=== PATIENT | male | born 1960 | race African-American/Black ===

== ENCOUNTER 2021-12-18 05:14 | Day surgery (SDC) | payer MEDICARE ==
[~2021-12-18] VITALS: Ht 170.2 cm; Wt 77.3 kg
[2021-12-18] VITALS (8 sets, daily range): BP systolic 121–143; BP diastolic 66–80; PULSE 52–81; TEMP 97–97.2
[2021-12-18] MEDS ORDERED: GLUCOPHAGE1000 MG PO (05:59)
[2021-12-18] MEDS ORDERED: PRILOSEC 20MG20 MG PO (05:59)
[2021-12-18] MEDS ORDERED: PRAVACHOL 40MG40 MG PO (06:00)
[2021-12-18] MEDS ORDERED: GLUCOTROL XL5 MG/TAB PO (06:00)
[2021-12-18] MEDS ORDERED: ZOVIRAX 200MG200 MG PO (06:01)
[2021-12-18] MEDS ORDERED: LANTUS SOLOS100 U/ML SQ (06:02)
[2021-12-18] MEDS ORDERED: NORCO 325 MG-101 TAB PO (06:02)
--- NOTE | 2021-12-18 08:55 | NUR ---
Patient returns to room 7 per cart from PACU accompanied by Delaney CARO and is awake and alert. Temp 97.5 and sats 95% on 2L. Right arm in sling and fingers warm to touch. States that the arm is numb. Ice bag on the right shoulder. Siderails up x2 and call light in reach. Allowed to rest.
--- NOTE | 2021-12-18 09:10 | NUR ---
Stands at bedside and voids per urinal. Tolerates activity well.
--- NOTE | 2021-12-18 09:25 | NUR ---
Resting and ice bag maintained on the right shoulder. Oxygen maintained while resting at 2L. Takes few ice chips.
--- NOTE | 2021-12-18 09:40 | NUR ---
Continues to rest with eyes closed and not disturbed. Ice bag maintained on the right shoulder.
--- NOTE | 2021-12-18 09:55 | NUR ---
Continues to rest with head of cart at 30 degrees and right arm maintained in sling. Ice on the right shoulder.
--- NOTE | 2021-12-18 10:25 | NUR ---
More awake and now. Sipping on juice. Right arm in sling and ice bag on the right shoulder.
--- NOTE | 2021-12-18 11:00 | NUR ---
Eating muffin and drinking juice. IV to INT. Attempts to dress self. Right arm remains numb due to the block placed pre-operatively. Denies pain.
--- NOTE | 2021-12-18 11:20 | NUR ---
Anne was called and will be here in approximately 30 minutes.
--- NOTE | 2021-12-18 11:45 | NUR ---
Dismissal instructions given and patient voices understanding of these.
--- NOTE | 2021-12-18 12:01 | NUR ---
Patient dismissed to home driven by friend and taken to the front door per wheelchair and assisted into vehicle with instructions in hand.
== END 2021-12-18 12:01 | disposition home or self-care (01) ==
LOC: SDCO 05:14
DX: S43.101A Unspecified dislocation of right acromioclavicular joint, initial encounter (principal); K21.9 Gastro-esophageal reflux disease without esophagitis; F17.210 Nicotine dependence, cigarettes, uncomplicated; X58.XXXA Exposure to other specified factors, initial encounter
CPT/HCPCS: A4619; J0690; J1100; J1885; J2250; J2405; J2704; J2795; J3010; J7120